=== PATIENT | male | born 1995 | race Caucasian/White ===

== ENCOUNTER 2020-05-30 01:34 | Emergency (ER) | payer OTHER ==
[2020-05-30] MEDS ORDERED: IPRATROPIUM/ALBUTEROL 3 ML NEB INH STA (02:05)
--- NOTE | 2020-05-30 02:07 | ED Physician Documentation ---
PD HPI DYSPNEA - Stated complaint Stated Complaint: SHORTNESS OF BREATH - Chief complaint Chief Complaint: Resp - History obtained from History obtained from: Patient - History of Present Illness Timing - onset: Enter time (21:00), Last night Timing - onset during: Rest Timing - details: Gradual onset Pain level max: 2 Pain level now: 2 Improved by: Rest Worsened by: Exertion Associated symptoms: No: Fever, Cough, Chest pain / discomfort, Palpitations, Diaphoresis, Bilateral edema, Unilateral edema Similar symptoms before: Diagnosis (patient says he had one similar episode approximately 1 year ago in setting of bronchitis) Recently seen: Not recently seen - Additional information Additional information: c/o dyspnea, chest congestion without cough since 9 PM. This has persisted and prevented him from getting to sleep and thus he presents to ED Review of Systems Constitutional: denies: Fever, Chills, Sweats Throat: denies: Sore throat Cardiac: reports: Chest pain / pressure (bilateral posterior mild pleuritic chest pain) Respiratory: reports: Dyspnea. denies: Cough PD PAST MEDICAL HISTORY - Past Medical History Past Medical History: Yes Respiratory: Other Other Past Medical History: Has had Bronchitis once last year - Past Surgical History Past Surgical History: No - Present Medications Home Medications: Ambulatory Orders Medication Instructions Recorded Confirmed Albuterol Sulf [Ventolin Hfa 1 - 2 puffs INH Q4HR PRN #1 inhaler 05/30/20 Inhaler] - Allergies Allergies/Adverse Reactions: Allergies Allergy/AdvReac Type Severity Reaction Status Date / Time No Known Drug Allergies Allergy Verified 05/30/20 01:52 - Social History Does the pt smoke?: No Smoking Status: Never smoker Does the pt drink ETOH?: No Does the pt have substance abuse?: No - Immunizations Immunizations are current?: Yes - POLST Patient has POLST: No PD ED PE NORMAL - Vitals Vital signs reviewed: Yes - General General: Alert and oriented X 3, No acute distress, Well developed/nourished - Cardiac Cardiac: RRR, No murmur - Respiratory Respiratory: No respiratory distress PD ED PE EXPANDED - Respiratory Respiratory: Wheezing (trace end-expiratory wheezes at bilateral bases and right middle and upper lung pride as well) Results - Vitals Vitals: Vital Signs - 24 hr 05/30/20 05/30/20 05/30/20 01:40 02:19 02:35 Temperature 36.8 C Heart Rate 87 86 78 Respiratory 18 16 18 Rate Blood Pressure 131/99 H 150/104 H O2 Saturation 98 97 05/30/20 05/30/20 02:57 03:37 Temperature 36.7 C Heart Rate 85 83 Respiratory 14 14 Rate Blood Pressure 125/83 H 141/86 H O2 Saturation 100 100 Oxygen O2 Source Room air - Rads (name of study) chest xray Radiology: Prelim report reviewed, See rad report PD MEDICAL DECISION MAKING - ED course Complexity details: reviewed results, re-evaluated patient, considered differential, d/w patient ED course: reevaluated after duoneb. He reports resolution of his dyspnea as well as his chest (pleuritic) pain. His lungs are now CTA bilaterally. Departure - Departure Disposition: 01 Home, Self Care Clinical Impression: Bronchitis with bronchospasm Condition: Good Instructions: ED Bronchitis Asthmatic Prescriptions: Albuterol Sulf [Ventolin Hfa Inhaler] 1 - 2 puffs INH Q4HR PRN #1 inhaler PRN Reason: Shortness Of Air/Wheezing Discharge Date/Time: 05/30/20 03:38
[2020-05-30 03:38] VITALS: BP 141/86
--- NOTE | 2020-05-30 08:55 | XRAY Report ---
PROCEDURE: Chest 2 View X-Ray INDICATIONS: dyspnea, wheezing TECHNIQUE: 2 view(s) of the chest. COMPARISON: None. FINDINGS: Surgical changes and devices: None. Lungs and pleura: No pleural effusions or pneumothorax. Lungs are clear. Mediastinum: Mediastinal contours are normal. Heart size is normal. Bones and chest wall: No suspicious bony abnormalities. Soft tissues appear unremarkable. IMPRESSION: No acute cardiopulmonary disease process. Reviewed by: Allie Alvarado MD, PhD on 05/30/2020 8:54 AM [facility] [[email or web address]] Approved by: Allie Alvarado MD, PhD on 05/30/2020 8:54 AM [facility] [[email or web address]] Station ID: [id number]
== END 2020-05-30 03:38 | disposition home or self-care (01) ==
LOC: ED 01:34
DX: J98.01 Acute bronchospasm (principal)
CPT/HCPCS: 94640; 99283

== ENCOUNTER 2021-09-23 15:53 | Emergency (ER) | payer OTHER ==
[2021-09-23] MEDS ORDERED: CHERRY SYRUP 10 ML UDC PO ONE (16:20)
[2021-09-23] MEDS ORDERED: DEXAMETHASONE 10 MG/ML VIAL PO STA (16:20)
[2021-09-23] MEDS ORDERED: ALBUTEROL 1 PUFF INH STA (16:20)
--- NOTE | 2021-09-23 16:23 | ED Physician Documentation ---
History of Present Illness - Stated complaint Stated Complaint: SOA - Chief complaint Chief Complaint: Resp - Additonal information Additional information: 25-year-old male who reports being fully vaccinated for COVID-19 presents emergency department with 5 days cough mostly dry and congestion. He is also felt very short of breath and has had labored breathing. He states that he has no history of asthma but about 5 years ago with a chest cold he began to experience asthma-like symptoms when sick. He typically uses an inhaler but is out right now. He is a non-smoker nonvapor. No alcohol use. Denies any pertinent past medical history. No hospitalizations. Takes no prescribed medications. PERC negative Review of Systems Constitutional: denies: Fever, Chills Eyes: reports: Reviewed and negative Nose: reports: Reviewed and negative Throat: reports: Reviewed and negative Cardiac: reports: Reviewed and negative Respiratory: reports: Dyspnea, Cough, Wheezing. denies: Hemoptysis GI: reports: Reviewed and negative : reports: Reviewed and negative Skin: reports: Reviewed and negative PD PAST MEDICAL HISTORY - Past Medical History Respiratory: Other - Past Surgical History Past Surgical History: No - Present Medications Home Medications: Ambulatory Orders Medication Instructions Recorded Confirmed Albuterol Sulf [Ventolin Hfa 1 - 2 puffs INH Q4HR PRN #1 inhaler 05/30/20 Inhaler] Albuterol Sulf [Ventolin Hfa 1 - 2 puffs INH Q4HR PRN #1 inhaler 09/23/21 Inhaler] - Allergies Allergies/Adverse Reactions: Allergies Allergy/AdvReac Type Severity Reaction Status Date / Time shellfish derived Allergy Unknown Verified 09/23/21 15:59 - Social History Does the pt smoke?: No Smoking Status: Never smoker Does the pt drink ETOH?: No Does the pt have substance abuse?: No - Immunizations Immunizations are current?: Yes - POLST Patient has POLST: No PD ED PE EXPANDED - General General: Alert, No acute distress - Cardiac Cardiac: Regular Rate, Radial strong equal, Pedal strong equal, Cap refill < 2 sec. No: Murmur Present - Respiratory Respiratory: Labored, Wheezing (Diffuse expiratory wheeze in all lung pride. Room air saturations 98%. No tachypnea.). No: Accessory mm use - Abdomen Abdomen: Normal Bowel sounds. No: Tender to palpation - Extremities Extremities: No: Pedal edema bilateral - Neuro Neuro: Alert and Oriented X 3, CNII-XII intact - GCS Eye Opening: Spontaneous Motor: Obeys Commands Verbal: Oriented Total: 15 Results - Vitals Vitals: Vital Signs - 24 hr 09/23/21 09/23/21 15:55 16:41 Temperature 36.4 C L Heart Rate 111 H 90 Respiratory 18 20 Rate Blood Pressure 139/90 H O2 Saturation 97 Oxygen O2 Source Room air - Rads (name of study) cxr Radiology: Final report received (No acute process) PD MEDICAL DECISION MAKING - ED course Complexity details: reviewed results, re-evaluated patient, considered differential, d/w patient ED course: 25-year-old male presents emergency department for evaluation of cough congestion wheeze and shortness of air. Symptoms began 5 days ago. No fevers. He reports that he gets asthma-like symptoms when he gets a chest cold. Currently out of albuterol. On exam he had diffuse scattered expiratory wheeze. Chest x-ray was negative for acute focal findings. Patient was given albuterol here in the emergency department with marked improvement in results. He is also given a one-time dose of Decadron. Will defer any antibiotics given lack of fever and short duration of symptoms. I suspect suspect he has a mild URI. Given that he is fully vaccinated for Covid will defer Covid testing. Patient will be prescribed some albuterol to use with his inhaler. Otherwise emergent return precautions were discussed for worsening symptoms Departure - Departure Disposition: 01 Home, Self Care Clinical Impression: Viral URI with cough Condition: Stable Record reviewed to determine appropriate education?: Yes Instructions: ED Bronchitis Asthmatic, ED Reactive Airway Disease Prescriptions: Albuterol Sulf [Ventolin Hfa Inhaler] 1 - 2 puffs INH Q4HR PRN #1 inhaler PRN Reason: Shortness Of Air/Wheezing Comments: Frederic you are seen today in the emergency department for cough wheeze and shortness of air. Your symptoms began about 5 days ago with what sounds like a viral upper respiratory infection. Many people will develop asthma-like symptoms or new wheeze and shortness of air when they have a head cold. We did give you some albuterol here in the emergency department which seems to have helped your symptoms. I am sending a prescription to [facility]. I would like you to be used 2 to 4 puffs 4-6 times a day for your cough. Your chest x-ray today is normal. There is no pneumonia. In general treat this like a common cold. Get lots of fluids and plenty of rest. Please return to the ER if you develop fevers higher than 102, your cough does not improve after 2 weeks, or you are severely short of air
--- NOTE | 2021-09-23 16:41 | XRAY Report ---
PROCEDURE: Chest 1 View X-Ray INDICATIONS: chest pain TECHNIQUE: One view of the chest was acquired. COMPARISON: 05/30/2020 FINDINGS: Surgical changes and devices: None. Lungs and pleura: No pleural effusions or pneumothorax. Lungs are clear. Mediastinum: Mediastinal contours appear normal. Heart size is normal. Bones and chest wall: No suspicious bony lesions. Overlying soft tissues appear unremarkable. IMPRESSION: No acute cardiopulmonary findings Reviewed by: Sang Landry MD on 09/23/2021 3:40 PM [facility] Approved by: Sang Landry MD on 09/23/2021 3:40 PM [facility] Station ID: [id number]
[2021-09-23 17:05] VITALS: BP 122/78
== END 2021-09-23 17:05 | disposition home or self-care (01) ==
LOC: ED 15:53
DX: J06.9 Acute upper respiratory infection, unspecified (principal)
CPT/HCPCS: 71045; 94640; 99282; 99283; A9270